=== PATIENT | female | born 1940 | race Asian ===

== ENCOUNTER 2019-04-06 20:59 | Inpatient (IN) | payer OTHER, MEDICAID ==
[~2019-04-06] VITALS: Ht 162.6 cm; Wt 74.8 kg
[2019-04-06 21:05] VITALS: BP_SYST 132
--- NOTE | 2019-04-06 21:58 | NUR ---
Pt BIB daughter with c/o intermittent fever x 10 days and N/V/D with abdominal pain x 6 days. Daughter states that pt has been vomiting twice per day x 6 days. Pt has had poor appetite and ate only "2 nibbles" all day. Daughter states that pt recently returned from [place] and was given zofran, antibiotics, and immodium while there with no improvement in symptomos.
--- NOTE | 2019-04-06 21:58 | NUR ---
Patient to ER bed 6 for evaluation. Side rails up.
--- NOTE | 2019-04-06 21:58 | NUR ---
Patient to ER bed 6 to gown for evaluation. Side rails up. Report given to SHAAWNDA GUTIERREZ.
--- NOTE | 2019-04-06 22:05 | NUR ---
Dr. Valle at bedside.
[2019-04-06] MEDS ORDERED: metroNIDAZOLE 500 mg/NS 100 ML IV ONE (22:15)
--- NOTE | 2019-04-06 22:35 | NUR ---
# 22 gauge angiocath placed to LAC. Use of asceptic technique. Opsite placed over site. Blood return noted. Blood for lab drawn from site. Flushed with 10 cc of normal saline. No evidence of infiltration noted. Patient tolerated well.
[2019-04-06 22:56] LABS: BASOPHILS # (AUTO) 0.1 K/uL (0.0-0.2); BASOPHILS % (AUTO) 0.5 % (0.0-2.0); HEMATOCRIT 35.5 % (36-48); LYMPHOCYTES # (AUTO) 1.5 K/uL (1.0-5.5); LYMPHOCYTES % (AUTO) 8.5 % (20.5-51.5); MEAN CORPUSCULAR HEMOGLOBIN 27 pg (27-31); MEAN CORPUSCULAR HGB CONC 34 % (32-36); MEAN CORPUSCULAR VOLUME 81 fL (79.0-98.0); MONOCYTES # (AUTO) 2.3 K/uL (0.0-1.0); MONOCYTES % (AUTO) 12.9 % (1.7-9.3); NEUTROPHILS # (AUTO) 14.1 K/uL (1.8-7.7); PLATELET COUNT (AUTO) 290 K/uL (130-430); RED BLOOD CELL COUNT(AUTO) 4.39 MIL/uL (4.2-6.2); RED CELL DISTRIBUTION WIDTH 13.4 % (9.0-15.0)
--- NOTE | 2019-04-06 23:00 | NUR ---
Pt verbalizes improvement in pain to 1/10. Daughter at bedside, no needs verbalized at this time. VSS, NAD.
[2019-04-06 23:07] LABS: ANION GAP 9 (5-15); CALCIUM 8.7 mg/dL (8.4-11.0); CHLORIDE 97 mmol/L (98-107); CREATININE 1.35 mg/dL (0.55-1.30); GLUCOSE 112 mg/dL (70-99); SODIUM SERUM 136 mmol/L (136-145); UREA NITROGEN, BLOOD 13 mg/dL (8-21)
[2019-04-06 23:16] LABS: POTASSIUM 2.7 mmol/L (3.5-5.1)
[2019-04-06 23:27] LABS: NEUTROPHILS % (AUTO) 78.1 % (40.0-70.0)
[2019-04-06] MEDS ORDERED: POTASSIUM CHLORIDE 20 MEQ/PKT PACKET PO ONE (23:30)
[2019-04-06 23:32] LABS: TOTAL BILIRUBIN 1.3 mg/dL (0.0-1.0)
[2019-04-06 23:33] LABS: ALANINE AMINOTRANSFERASE 26 U/L (12-78); ALBUMIN 2.9 g/dL (3.4-4.8); ASPARTATE AMINOTRANSFERASE 25 U/L (10-37)
[2019-04-07] MEDS ORDERED: ONDANSETRON 4 MG ODT TAB ONE (00:43)
[2019-04-07] MEDS ORDERED: LEVOFLOXACIN 500 MG/D5W 100 ML IV ONE (00:45)
[2019-04-07] MEDS ORDERED: ONDANSETRON HCL 4 MG/2 ML VIAL IVP ONE (00:45)
[2019-04-07] MEDS ORDERED: NACL 0.9% 1,000 ML IV ONE (00:45)
--- NOTE | 2019-04-07 00:45 | NUR ---
KCL 20 mEq infusing at 50 mL/hr to patent PIV RAC with no s/s infiltration, no burning to site. Denies c/o C/P or SOB. Pt afebrile with temp 98.4 No needs verbalized at this time. VSS, NAD.
--- NOTE | 2019-04-07 01:00 | NUR ---
Pt c/o nausea. Dr. Valle notified.
[2019-04-07] MEDS ORDERED: KCL 20 mEq in 100 mL (PREMIX) 100 ML IV ONE (01:15)
[2019-04-07] MEDS ORDERED: NACL 0.9% 1,200 ML IV ONE (02:30)
[2019-04-07] MEDS ORDERED: ARIP10TA9 PO (02:34)
[2019-04-07] MEDS ORDERED: NOR10 PO (02:35)
[2019-04-07] MEDS ORDERED: ATEN-168 PO (02:35)
[2019-04-07] MEDS ORDERED: HYDR25TA4 PO (02:35)
[2019-04-07] MEDS ORDERED: IRBE150T26 PO (02:35)
--- NOTE | 2019-04-07 02:35 | NUR ---
Medication reconciliation completed with information provided by TEQUILA. Any prior medication reconciliation on file was reviewed and corrected.
--- NOTE | 2019-04-07 03:45 | NUR ---
Temporal Temp recheck 101.3. Dr. Valle notified. Linens removed from pt. VSS. Pt.'s daughter at bedside.
[2019-04-07] MEDS ORDERED: ACETAMINOPHEN 500 MG TABLET ONE (03:52)
[2019-04-07] MEDS ORDERED: ACETAMINOPHEN 500 MG TABLET PO ONE (04:00)
--- NOTE | 2019-04-07 04:38 | NUR ---
X-ray at bedside.
--- NOTE | 2019-04-07 04:39 | NUR ---
Temp recheck 99.7. Denies c/o pain or discomfort. No needs verbalized at this time. Daughter at bedside.
[2019-04-07] MEDS ORDERED: metroNIDAZOLE 500 mg/NS 100 ML IV ONE (05:01)
[2019-04-07] MEDS ORDERED: KCL 20 mEq in D5/0.45NS 1000mL 1,000 ML IV ONE (05:02)
--- NOTE | 2019-04-07 05:07 | NUR ---
ADMIT NOTE Received pt from ER to the floor with a diagnosis of acute gastroenteritis. Admission process initiated. patient oriented to pain management, safety and call light-teach back done.
--- NOTE | 2019-04-07 05:08 | NUR ---
Patient will be admitted to care of Dr. Contreras. Admitted to Tele unit. Will go to room 135. Belongings list completed. Summary report printed. Bedside report given to MATT Ortiz.
[2019-04-07 05:21] VITALS: BP_SYST 117
--- NOTE | 2019-04-07 06:00 | NUR ---
initial notes: pt is awake, alert, oriented x 4, no pain, stable, no distress, no sob. iv lock to right and left ac 20-intact and patent. no skin breakdown. assess pt and chart to admission. explained plan of care, discuss medication and given a medication fact sheets, orient to room and call light, safety. pt verbalized understanding. needs attended. call light in reach. side rails up. low bed position and lock. will continue to monitor.
[2019-04-07] MEDS: KCL 20 mEq in D5/0.45NS 1000mL 1,000 ML IV SCH ×2 (06:14→20:05)
[2019-04-07] MEDS: metroNIDAZOLE 500 mg/NS 100 ML IV SCH ×3 (06:15→21:17)
[2019-04-07 06:30] LABS: BASOPHILS # (AUTO) 0.1 K/uL (0.0-0.2); BASOPHILS % (AUTO) 0.3 % (0.0-2.0); HEMATOCRIT 32.2 % (36-48); HEMOGLOBIN 10.8 g/dL (12.0-16.0); LYMPHOCYTES # (AUTO) 0.8 K/uL (1.0-5.5); MEAN CORPUSCULAR HEMOGLOBIN 27 pg (27-31); MEAN CORPUSCULAR HGB CONC 34 % (32-36); MEAN CORPUSCULAR VOLUME 81 fL (79.0-98.0); MONOCYTES # (AUTO) 2.3 K/uL (0.0-1.0); MONOCYTES % (AUTO) 13.7 % (1.7-9.3); NEUTROPHILS # (AUTO) 13.6 K/uL (1.8-7.7); PLATELET COUNT (AUTO) 258 K/uL (130-430); RED BLOOD CELL COUNT(AUTO) 3.96 MIL/uL (4.2-6.2); RED CELL DISTRIBUTION WIDTH 13.3 % (9.0-15.0); WHITE BLOOD COUNT (AUTO) 16.8 K/uL (4.8-10.8)
[2019-04-07 06:39] LABS: ANION GAP 4 (5-15); CALCIUM 8.1 mg/dL (8.4-11.0); CHLORIDE 103 mmol/L (98-107); CREATININE 1.05 mg/dL (0.55-1.30); GLUCOSE 119 mg/dL (70-99); SODIUM SERUM 133 mmol/L (136-145); UREA NITROGEN, BLOOD 11 mg/dL (8-21)
[2019-04-07 06:44] LABS: ALANINE AMINOTRANSFERASE 19 U/L (12-78); ALBUMIN 2.5 g/dL (3.4-4.8); ASPARTATE AMINOTRANSFERASE 24 U/L (10-37); TOTAL BILIRUBIN 1.4 mg/dL (0.0-1.0)
--- NOTE | 2019-04-07 07:15 | NUR ---
closing: pt is awake, alert. no pain. no distress. stable. no active diarrhea. no vomiting. ivf infusing well. family at bedside. bedside report given to am rn.
[2019-04-07 07:18] LABS: POTASSIUM 2.7 mmol/L (3.5-5.1)
--- NOTE | 2019-04-07 07:20 | NUR ---
Notes: Paged Dr. Contreras due to critical value, K: 2.7.
--- NOTE | 2019-04-07 08:01 | NUR ---
Initial Note: Patient awake, alert and oriented. Assisted patient with bedpan. Denies any pain, nausea, no vomiting at this time. Breakfast tray at bedside, patient is trying to eat breakfast. Safety precaution met, bedside at low position, call light within reach and encourage to use. Family is at bedside.
[2019-04-07 08:04] VITALS: BP_SYST 113
--- NOTE | 2019-04-07 08:25 | NUR ---
Note: Spoke with Dr. Contreras regarding potassium lab result, new order received.
[2019-04-07] MEDS ORDERED: KCL 20 mEq in 100 mL (PREMIX) 200 ML IV ONE (08:30)
[2019-04-07] MEDS ORDERED: POTASSIUM CHLORIDE 20 MEQ TAB.PRT.SR PO ONE (08:30)
--- NOTE | 2019-04-07 10:00 | NUR ---
Notes: Patient resting in bed. Assisted with bedpan, able to self adjust, patient had good urine output. Potassium running of right antecubital, denies any pain or discomfort at IV site. No nausea, vomiting or diarrhea at this time. Will continue to monitor.
[2019-04-07 12:00] VITALS: BP_SYST 129
--- NOTE | 2019-04-07 12:00 | NUR ---
Note: Patient awake and resting in bed. Lunch tray at bedside, patient is drinking juice. Assisted with bed hargrove, patient had loose bowel movement. Denies any pain or discomfort at this time. K-Francisco Javier running on right antecubital, denies any pain or discomfort. All needs met. Call light within reach and encourage patient to use for assistance.
--- NOTE | 2019-04-07 14:00 | NUR ---
Note: Patient awake, and resting in bed. Reposition for comfort. Denies any pain, nausea, diarrhea, or discomfort at this time. Family is at bedside. Call light within reach, and encourage patient to use for assistance.
--- NOTE | 2019-04-07 16:00 | NUR ---
Note: Patient awake and lying down at bedside. Assisted patient with bed hargrove. Family at bedside. Informed family that Dr. Contreras is here and will be making rounds. All needs met at this time. Call light within reach and encourage patient to use for assistance. Will continue to monitor.
[2019-04-07 16:11] VITALS: BP_SYST 156
--- NOTE | 2019-04-07 16:30 | NUR ---
MD Rounds: Dr. Contreras spoke with patient and family at bedside.
[2019-04-07] MEDS ORDERED: ATENOLOL 50 MG TABLET (TENORMIN) PO ONE (17:15)
[2019-04-07] MEDS ORDERED: amLODIPine BESYLATE 10 MG TABLET PO ONE (17:15)
--- NOTE | 2019-04-07 18:44 | NUR ---
Closing Note: Pt wake and alert talking with family at bedside. Denies any pain or discomfort. No active diarrhea, vomiting, or nausea. IVF infusing well, no signs of infiltration or pain. All needs met throughout shift. Safety and fall precautions met. Will continue to monitor until patient care endorsed to oncoming night stocker nurse.
--- NOTE | 2019-04-07 19:20 | NUR ---
Initial Note Received patient awake, alert and oriented with family at the bedside. No SOB noted. Denies any pain at this time. Complain of nausea but no vomiting. Will check orders. IVF infusing. Room air. Skin intact and no peripheral edema noted. Care and monitoring will be provided. Call light within reach. Bed alarm on and at lowest position at all times. Advised we need stool specimen. VS stable. Needs attended. Kept warm and comfortable.
--- NOTE | 2019-04-07 19:40 | NUR ---
Dr. Diane Contreras called back and ordered medications for nausea and pain as needed.
[2019-04-07] MEDS ORDERED: ACETAMINOPHEN 325 MG TABLET PO PRN (19:45)
[2019-04-07] MEDS ORDERED: ONDANSETRON HCL 4 MG/2 ML VIAL IVP PRN (19:45)
[2019-04-07 20:00] VITALS: BP_SYST 125
--- NOTE | 2019-04-07 20:05 | NUR ---
RN Note Refused blood thinner. Given nausea medication per patient's request. Advised that she will get IV antibiotic later and in am. Needs attended. No other complaints.
[2019-04-07] MEDS ORDERED: ENOXAPARIN SODIUM 40 MG/0.4 ML SYRINGE SUBCUT SCH (21:00)
--- NOTE | 2019-04-07 22:00 | NUR ---
RN Note Patient awake and alert with family (son in law) at the bedside. Talked to patient's daughter who's a doctor as well on the phone re total K+ given to her mother today. No other complaints. Needs attended.
--- NOTE | 2019-04-08 01:00 | NUR ---
RN Note Patient sleeping at this time. No SOB or grimacing noted.
[2019-04-08 01:26] VITALS: BP_SYST 126
--- NOTE | 2019-04-08 02:30 | NUR ---
RN Note Patient awake and asked for a bedpan. Given bedpan as requested. No urine noted but patient claims she did. Kept clean, dry and warm. No other complaints.
--- NOTE | 2019-04-08 04:30 | NUR ---
RN Note Asleep, moves occasionally. No distress noted. IVF infusing.
[2019-04-08] MEDS: metroNIDAZOLE 500 mg/NS 100 ML IV SCH ×3 (05:31→21:42)
[2019-04-08 06:07] LABS: ANION GAP 8 (5-15); CALCIUM 7.9 mg/dL (8.4-11.0); CHLORIDE 99 mmol/L (98-107); CREATININE 1.06 mg/dL (0.55-1.30); GLUCOSE 123 mg/dL (70-99); PHOSPHORUS 1.7 mg/dL (2.7-4.5); POTASSIUM 3.5 mmol/L (3.5-5.1); SODIUM SERUM 132 mmol/L (136-145); UREA NITROGEN, BLOOD 8 mg/dL (8-21)
[2019-04-08 06:15] VITALS: BP_SYST 125
[2019-04-08 06:26] LABS: BASOPHILS # (AUTO) 0.1 K/uL (0.0-0.2); BASOPHILS % (AUTO) 0.4 % (0.0-2.0); EOSINOPHILS % (AUTO) 0.1 % (0.0-4.0); HEMATOCRIT 33.1 % (36-48); LYMPHOCYTES # (AUTO) 0.8 K/uL (1.0-5.5); LYMPHOCYTES % (AUTO) 5.9 % (20.5-51.5); MEAN CORPUSCULAR HEMOGLOBIN 27 pg (27-31); MEAN CORPUSCULAR HGB CONC 33 % (32-36); MEAN CORPUSCULAR VOLUME 82 fL (79.0-98.0); MONOCYTES # (AUTO) 1.9 K/uL (0.0-1.0); MONOCYTES % (AUTO) 14.1 % (1.7-9.3); NEUTROPHILS # (AUTO) 10.8 K/uL (1.8-7.7); NEUTROPHILS % (AUTO) 79.5 % (40.0-70.0); PLATELET COUNT (AUTO) 219 K/uL (130-430); RED BLOOD CELL COUNT(AUTO) 4.04 MIL/uL (4.2-6.2); RED CELL DISTRIBUTION WIDTH 13.3 % (9.0-15.0); WHITE BLOOD COUNT (AUTO) 13.6 K/uL (4.8-10.8)
--- NOTE | 2019-04-08 06:42 | NUR ---
End Note Afebrile. VS stable. No complain of pain, SOB or vomiting throughout the night. Medicated for nausea once last night. IVF infusing. AM labs drawn. Had diarrhea, stool specimen obtained and sent to the lab. Offered bed hargrove several times all night. Care and monitoring provided per protocol. Call light within reach. Bed alarm on and at lowest position at all times. Needs attended. Kept warm and comfortable. SR on a monitor. Patient's daughter at the bedside with questions such as IV antibiotics given and how long. Concerned about the diarrhea and wants to hold/stop the IV antibiotics. Wants Ensure supplement and Hepatitis panel for her mother. SCDs instead of Lovenox. Will endorse to AM RN. Vitals taken as requested-stable.
[2019-04-08 07:45] VITALS: BP_SYST 137
--- NOTE | 2019-04-08 07:51 | NUR ---
AM rounds: Patient is oriented x4. Denies pain at this time, patient states she has occasional cramping but none this time. Call light within reach. IV fluids of D5 1/2 NS +20KLC at 75 cc/hr infusing ont the right AC gauge 20, IV is patent is intact.
[2019-04-08] MEDS: KCL 20 mEq in D5/0.45NS 1000mL 1,000 ML IV SCH (08:50)
[2019-04-08] MEDS: ATENOLOL 50 MG TABLET (TENORMIN) PO SCH (08:51)
[2019-04-08] MEDS ORDERED: ARIPiprazole 5 MG TAB PO SCH (09:00)
[2019-04-08] MEDS ORDERED: amLODIPine BESYLATE 10 MG TABLET PO SCH (09:00)
--- NOTE | 2019-04-08 09:49 | NUR ---
Nutrition Update Geraldo Scale 18 noted. Pt admitted for acute gastroenteritis. Diet: full liquid BMI: 28.3 kg/m2 RD to follow per nutrition care standards.
--- NOTE | 2019-04-08 11:04 | NUR ---
CONSULTATION PAGED/CALLED Reason for Consultation: GASTROENTERITIS Person Who was Notified: SPOKE WITH ELADIO FROM DR. ROACH OFFICE Consulting Physician: Form Tamper Specialty: INFECTIOUS DISEASE Ordering Physician:
--- NOTE | 2019-04-08 11:52 | NUR ---
SCD: Bilateral SCD initiated . Indications were explained to the patient and son.
[2019-04-08 12:34] VITALS: BP_SYST 129
--- NOTE | 2019-04-08 15:11 | NUR ---
Bathroom: Assisted patient to the bathroom. Noted with limping gait which family said is her baseline due to hip/joints problems. Had small soft BM.
[2019-04-08 16:24] VITALS: BP_SYST 136
[2019-04-08] MEDS: ARIPiprazole 5 MG TAB PO SCH (17:02)
--- NOTE | 2019-04-08 18:00 | NUR ---
ID consult: Seen by Dr. Frankel, new orders noted. Patient's daughter at bedside.
--- NOTE | 2019-04-08 18:22 | NUR ---
End of shift: Needs attended. No change in assessment.
[2019-04-08] MEDS: cefTRIAXone 1 GM in D5W 50 ML IV SCH (19:31)
--- NOTE | 2019-04-08 20:00 | NUR ---
Initial note: Received report from severiano RN. Patient is laying in bed awake. Alert and oriented x4, no distress noted. Tolerates room air. IV sites to right and left AC are patent and benign. Right AC is receiving IV fluids as ordered. Call light with patient. Bed locked in lowest position, side rails raised, bed alarm on. Will continue with plan of care.
[2019-04-08 20:50] VITALS: BP_SYST 140
[2019-04-08] MEDS: amLODIPine BESYLATE 10 MG TABLET PO SCH (21:42)
[2019-04-08] MEDS: NAPH,MB-DB/K PH,MBDB 250 MG TAB PO SCH (21:42)
--- NOTE | 2019-04-08 21:43 | NUR ---
Med pass: Scheduled medications administered as ordered. Patient tolerated well, no adverse effects noted. Patient's daughter present at bedside, updated her with plan of care. Call light with patient. Will continue to monitor.
--- NOTE | 2019-04-09 00:08 | NUR ---
Rounds: Patient is resting in bed comfortably. No acute distress. Even and effortless breathing on room air. IV fluids infusing as ordered. Calll light is with patient. Will continue to monitor.
[2019-04-09 01:02] VITALS: BP_SYST 131
[2019-04-09] MEDS: KCL 20 mEq in D5/0.45NS 1000mL 1,000 ML IV SCH ×3 (01:09→17:28)
--- NOTE | 2019-04-09 02:05 | NUR ---
Stool sample collected: Patient had 1 BM with loose, brown stool. Collected stool sample for ordered cultures. Sample sent to lab. Will continue to monitor.
--- NOTE | 2019-04-09 04:32 | NUR ---
Rounds: Patient is asleep, no distress. Even and unlabored breathing on room air. IV fluids infusing well to right AC. Call light with patient. Will continue to monitro.
[2019-04-09] MEDS: metroNIDAZOLE 500 mg/NS 100 ML IV SCH ×3 (05:25→21:56)
--- NOTE | 2019-04-09 06:10 | NUR ---
Closing note: Patient is asleep, laying comfortably in bed. No distress noted. Tolerating room air, even and unlabored breathing. IV fluids infusing well to right AC IV site. Left AC IV site remains patent and benign. All needs met. Safety and fall precautions observed. Hourly rounding performed throughout shift. Will endorse care to dayshift RN.
[2019-04-09 08:00] VITALS: BP_SYST 135
--- NOTE | 2019-04-09 08:03 | NUR ---
Initial Note: Pt resting in bed, awake, alert. Assisted to restroom, with minimal assistance. Patient had steady gait. Denies any dizziness, or pain at this time. IVF infusing well. Family at bedside. Safety precautions met, bed at lowest position, call light within reach and encouraged to use for assistance.
[2019-04-09 08:22] LABS: HEPATITIS A AB, IgM Negative (Negative); HEPATITIS B CORE AB, IgM Negative (Negative); HEPATITIS B SURFACE AG Negative (Negative)
[2019-04-09] MEDS: NAPH,MB-DB/K PH,MBDB 250 MG TAB PO SCH ×4 (08:40→21:56)
[2019-04-09] MEDS: ATENOLOL 50 MG TABLET (TENORMIN) PO SCH (08:40)
--- NOTE | 2019-04-09 10:00 | NUR ---
Notes: Pt lying down and sleeping in bed. No acute distress noted. Breathing is non-labored and even. Will continue to monitor.
[2019-04-09 11:00] VITALS: BP_SYST 137
--- NOTE | 2019-04-09 11:00 | NUR ---
DC Planning: late entry: received call from pt's dtr Zackery # [phone], she requested pt going to [facility] for [facility]hab until the pt is strong enoug for home discharge. She requested pt going to [facility]. Dr. Contreras made aware.
--- NOTE | 2019-04-09 12:00 | NUR ---
Notes: Pt awake, sitting up in bed, eating lunch. Denies any n/v/d, chest pain, or discomfort at this time. Family is at bedside. Call light is within reach and encourage patient to use for assistance. Will continue to monitor.
--- NOTE | 2019-04-09 12:17 | NUR ---
Dietitian Recommendations Continue full liquid diet Encourage PO intakes LT, RD Please refer to Nutrition Assessment for details. Addendum: 04/09/19 at [address] Amended: Links added.
--- NOTE | 2019-04-09 13:21 | NUR ---
Notes: Spoke with WILLIAM Caldwell, patients daughter would like to speak with CM to see if there is food services for her mother. Pt lives with daughter at home, daughter works during the day and there is no one to care for pt. Gave CM the phone number of the daughter Bieg, she will speak with her.
--- NOTE | 2019-04-09 14:00 | NUR ---
Notes: Pt awake and lying down in bed. Denies any n/v/d, pain or discomfort. All needs met at this time. Safety precautions in place, call light within reach and encourage patient to use for assistance.
[2019-04-09 17:20] VITALS: BP_SYST 133
[2019-04-09] MEDS: cefTRIAXone 1 GM in D5W 50 ML IV SCH (17:29)
[2019-04-09] MEDS: ARIPiprazole 5 MG TAB PO SCH (17:47)
--- NOTE | 2019-04-09 18:17 | NUR ---
Closing Note: Pt awake, alert, lying in bed. Family at bedside. Pt denies any n/v/d, pain or discomfort. No acute distress. IV fluids infusing well to right AC IV site. All needs met at this time. Safety precautions observed, call light within reach and encourage pt to use for assistance. Will endorse pt care to assistant casino shift manager nurse.
[2019-04-09 20:00] VITALS: BP_SYST 139
--- NOTE | 2019-04-09 20:00 | NUR ---
INITIAL NOTES: PT IS ALERT AND ORIENTED ;VITALS ARE STABLE ; NOT IN ANY ACUTE DISTRESS ;FAMILY AT BEDSIDE ; PT HAD ONE LOOSE BM , PT CLEANED , SPONGE BATH PROVIDED BY MARBLE RUBBER ;. PT IS COMFORTABLE ; WILL CONTINUE TO MONITOR AND WILL ENDORSE TO BETY RN .
--- NOTE | 2019-04-09 20:40 | NUR ---
RN NOTES : REPORT GIVEN TO BETY RN , PT IS COMFORTABLE ; NOT IN ANY ACUTE DISTRESS.
--- NOTE | 2019-04-09 21:50 | NUR ---
ASSUMPTION OF CARE RECEIVED HANDOFF REPORT FROM ORLIN. PATIENT IS RESTING COMFORTABLY IN BED, AAOX4. FAMILY IS AT THE BEDSIDE. NO SOB, NO ACUTE DISTRESS, NO COMPLAINTS OF ANY PAIN AT THIS TIME. CURRENTLY RECEIVING IVF PER THE MD ORDER, SEE EMAR FOR DETAILS. BED IS LOCKED, IN THE LOWEST POSITION, 2X SIDE RAILS UP, BED ALARM IS ON. CALL LIGHT IS WITHIN REACH. ENCOURAGED PATIENT TO CALL FOR ASSISTANCE. WILL CONTINUE WITH PLAN OF CARE.
[2019-04-09] MEDS: amLODIPine BESYLATE 10 MG TABLET PO SCH (22:03)
--- NOTE | 2019-04-09 23:45 | NUR ---
ASSISTED PATIENT TO USE THE BEDPAN. PATIENT VOIDED YELLOW CLEAR URINE. PROVIDED PERINEAL CARE NEEDED. PATIENT IS NOW CLEAN AND DRY, RESTING COMFORTABLY IN BED. BED IS LOCKED, IN THE LOWEST POSITION, 2X SIDE RAILS UP, BED ALARM IS ON. CALL LIGHT WITHIN REACH. ENCOURAGED PATIENT TO CALL FOR ASSISTANCE.
[2019-04-10 00:42] VITALS: BP_SYST 133
--- NOTE | 2019-04-10 01:19 | NUR ---
PATIENT ASSISTED TO AMBULATE TO THE TOILET TO VOID. HAD CLEAR YELLOW URINE, SOME PIECES OF DIARRHEA NOTED. ASSISTED PATIENT WITH PERINEAL CARE AND HAND HYGIENE. AMBULATED BACK TO BED WITH ASSISTANCE. NOW RESTING COMFORTABLY IN BED. SCDs REAPPLIED TO BOTH LEGS. CALL LIGHT WITHIN REACH. ENCOURAGED PATIENT TO CALL FOR ASSISTANCE.
--- NOTE | 2019-04-10 03:52 | NUR ---
PATIENT CALLED FOR ASSISTANCE. ASSISTED PATIENT TO AMBULATE TO THE RESTROOM. PATIENT VOIDED CLEAR YELLOW URINE. PROVIDED HAND HYGIENE FOR THE PATIENT. PATIENT RETURNED BACK TO BED. NOW RESTING COMFORTABLY IN BED. BED IS LOCKED, IN THE LOWEST POSITION, 2X SIDE RAILS UP, BED ALARM IS ON. CALL LIGHT WITHIN REACH. IV SITE INTACT, CURRENTLY INFUSING IVF PER MD ORDER, SEE EMAR. ENCOURAGED PATIENT TO CALL FOR ASSISTANCE.
[2019-04-10] MEDS: metroNIDAZOLE 500 mg/NS 100 ML IV SCH ×3 (05:38→22:26)
--- NOTE | 2019-04-10 06:13 | NUR ---
CLOSING NOTES PATIENT IS RESTING COMFORTABLY IN BED, EYES CLOSED, EASILY AROUSABLE TO TOUCH. NO SOB, NO ACUTE DISTRESS, NO COMPLAINTS OF PAIN AT THIS TIME. IV SITE INTACT, DRESSING CLEAN AND DRY, CURRENTLY INFUSING IVF PER MD ORDER, SEE EMAR FOR DETAILS. BILATERAL SCDS ARE CURRENTLY APPLIED TO BOTH LEGS. BED IS LOCKED, IN THE LOWEST POSITION, 2X SIDERAILS UP, BED ALARM IS ON. CALL LIGHT IS WITHIN REACH. FALL AND SAFETY PRECAUTIONS MAINTAINED. ALL NEEDS HAVE BEEN MET DURING THIS SHIFT. ENDORSEMENT OF CARE WILL BE GIVEN TO ONCOMING DAYSHIFT NURSE.
[2019-04-10] MEDS: KCL 20 mEq in D5/0.45NS 1000mL 1,000 ML IV SCH ×2 (06:28→18:40)
--- NOTE | 2019-04-10 07:57 | NUR ---
initial notes rec patient awake, alert and assisted to the br with minimal assists. ivf infusing on the r ac. no infiltration noted. denies pain or sob. resp easy and unlabored. bed to the lowest position and side rails up and locked. call light within reached and knows when to garima for assists.
[2019-04-10 08:00] VITALS: BP_SYST 144
[2019-04-10] MEDS: NAPH,MB-DB/K PH,MBDB 250 MG TAB PO SCH ×5 (09:43→20:46)
[2019-04-10] MEDS: ATENOLOL 50 MG TABLET (TENORMIN) PO SCH (09:44)
--- NOTE | 2019-04-10 10:00 | NUR ---
rounds due meds given as ordered and salbador well. resting comfortably. call light within reached.
[2019-04-10 12:00] VITALS: BP_SYST 124
--- NOTE | 2019-04-10 12:00 | NUR ---
rounds assisted to the br and salbador well. denies any pain at this time. no sob noted. call light within reached.
--- NOTE | 2019-04-10 14:00 | NUR ---
rounds asleep when rounds made. no sob noted. call light within reached.
[2019-04-10 16:25] VITALS: BP_SYST 130
[2019-04-10] MEDS: ARIPiprazole 5 MG TAB PO SCH (18:00)
--- NOTE | 2019-04-10 18:00 | NUR ---
rounds eating lunch.no sob noted. daughter at bedside.
[2019-04-10] MEDS: cefTRIAXone 1 GM in D5W 50 ML IV SCH (18:36)
--- NOTE | 2019-04-10 18:57 | NUR ---
closing notes resting comfortably. no sob noted. denies pain. bed to the lowest position and side rails up and locked. stable and needs attended.
--- NOTE | 2019-04-10 19:35 | NUR ---
ROUNDS PATIENT RESTING COMFORTABLY IN BED, NOT IN DISTRESS, VITALS STABLE . DENIES ANY PAIN AND DISCOMFORT AT THIS TIME. ASSESSMENT DONE AND DOCUMENTED. SEE FLOWSHEET. NEEDS ATTENDED TO. SAFETY AND FALL PRECAUTION MEASURES IN PLACED. CALL LIGHT PLACED WITHIN REACH.
[2019-04-10] MEDS: amLODIPine BESYLATE 10 MG TABLET PO SCH (20:46)
--- NOTE | 2019-04-10 21:13 | NUR ---
MEDICATION DUE MEDICATIONS GIVEN SCHEDULED, TOLERATED WELL. WILL CONTINUE TO MONITOR.
[2019-04-10 23:41] VITALS: BP_SYST 154
--- NOTE | 2019-04-11 00:16 | NUR ---
PATIENT RESTING: Patient resting quietly. No acute distress noted. Vital signs within normal range.
--- NOTE | 2019-04-11 02:15 | NUR ---
ROUNDS PATIENT ASLEEP, RESPIRATIONS EVEN AND UNLABORED, NO SIGNS OF PAIN AND DISCOMFORT NOTED. WILL CONTINUE TO MONITOR.
--- NOTE | 2019-04-11 04:12 | NUR ---
PATIENT RESTING: Patient resting quietly. No acute distress noted. Vital signs within normal range.
[2019-04-11] MEDS: metroNIDAZOLE 500 mg/NS 100 ML IV SCH ×3 (05:49→22:00)
--- NOTE | 2019-04-11 06:48 | NUR ---
CLOSING NOTES PATIENT AWAKE, NO COMPLAINTS AT THIS TIME, VITALS STABLE. ALL NEEDS ATTENDED TO. SAFETY AND FALL PRECAUTION MEASURES IN PLACED. BED IN LOW AND LOCKED POSITION. CALL LIGHT PLACED WITHIN REACH.
[2019-04-11 08:00] VITALS: BP_SYST 149; BP_SYST 151
--- NOTE | 2019-04-11 08:00 | NUR ---
initial notes rec patient awake alert with hob elevated. denies pain. ivf infusing well on the l hand. no infiltration noted. resp easy and unlabored. no osb noted. bed to the lowest position and side rails up and locked. call light withn reached and knows when to call for assistance.
[2019-04-11] MEDS: NAPH,MB-DB/K PH,MBDB 250 MG TAB PO SCH ×4 (09:22→20:54)
[2019-04-11] MEDS: ATENOLOL 50 MG TABLET (TENORMIN) PO SCH (09:23)
--- NOTE | 2019-04-11 10:00 | NUR ---
rounds due meds were given as ordered. assisted to the br with min assists and salbador well. call light within reached.
[2019-04-11 11:40] VITALS: BP_SYST 127
[2019-04-11] MEDS: KCL 20 mEq in D5/0.45NS 1000mL 1,000 ML IV SCH (12:41)
--- NOTE | 2019-04-11 12:44 | NUR ---
rounds due meds were given. call light within reached. no sob noted.
--- NOTE | 2019-04-11 14:00 | NUR ---
rounds assisted to the br with min assists and salbador well. no sob noted.
[2019-04-11 15:38] VITALS: BP_SYST 136
--- NOTE | 2019-04-11 16:00 | NUR ---
rounds asleep when rounds made. call light withn reached.
[2019-04-11] MEDS: ARIPiprazole 5 MG TAB PO SCH (18:00)
--- NOTE | 2019-04-11 18:30 | NUR ---
closing notes seen by dr sharma and talk to patient's daughter at bedside. resting comfortable. call light withn reached. no sob noted.
[2019-04-11] MEDS: cefTRIAXone 1 GM in D5W 50 ML IV SCH (18:34)
[2019-04-11 20:00] VITALS: BP_SYST 147
--- NOTE | 2019-04-11 20:00 | NUR ---
Opening notes Pt AAOx4, VSS, afebrile. Pt denies any N/V, or pain at this time. IVF infusing at ordered rate L hand 22G no s/s infiltration. Call light within easy reach. Daughter at bedside. Marv SCDs on. Bed low, locked, siderails x2 elevated. To monitor.
--- NOTE | 2019-04-11 20:50 | NUR ---
Rounds Pt assisted to the bathroom, denies any dizziness. Pt voided and had a small soft yellow BM.
[2019-04-11] MEDS: amLODIPine BESYLATE 10 MG TABLET PO SCH (20:53)
--- NOTE | 2019-04-11 22:40 | NUR ---
Rounds Pt asleep, easily arousable. No s/s distress noted. Call light within reach. Bed low, locked siderails up x2. To monitor.
[2019-04-11 23:11] VITALS: BP_SYST 152
--- NOTE | 2019-04-12 02:30 | NUR ---
Rounds Pt ambulated to the bathroom with SLIME PLANT OPERATOR HELPER standby assist. No s/s distress noted. Call light within reach. To monitor.
[2019-04-12] MEDS: KCL 20 mEq in D5/0.45NS 1000mL 1,000 ML IV SCH ×2 (03:43→16:13)
--- NOTE | 2019-04-12 04:48 | NUR ---
Rounds Pt asleep, no s/s distress or discomfort noted. Call light within reach. Bed low, locked, side rails x 2 up. To monitor.
[2019-04-12] MEDS: metroNIDAZOLE 500 mg/NS 100 ML IV SCH ×2 (06:00→14:00)
--- NOTE | 2019-04-12 06:35 | NUR ---
Closing notes Pt asleep, easily arousable. No c/o N/V, pain or discomfort. IV fluids infusing at ordered rate L. hand 22G no s/s infiltration. Call light within reach. Bed maintained low, locked, side rails up x2. Marv SCds on. To endorse to AM nurse.
[2019-04-12 06:40] LABS: BASOPHILS # (AUTO) 0.1 K/uL (0.0-0.2); BASOPHILS % (AUTO) 0.9 % (0.0-2.0); EOSINOPHILS # (AUTO) 0.3 K/uL (0.0-0.4); EOSINOPHILS % (AUTO) 3.2 % (0.0-4.0); HEMATOCRIT 37.5 % (36-48); HEMOGLOBIN 12.8 g/dL (12.0-16.0); LYMPHOCYTES % (AUTO) 18.7 % (20.5-51.5); MEAN CORPUSCULAR HEMOGLOBIN 28 pg (27-31); MEAN CORPUSCULAR HGB CONC 34 % (32-36); MEAN CORPUSCULAR VOLUME 81 fL (79.0-98.0); MONOCYTES # (AUTO) 1.4 K/uL (0.0-1.0); MONOCYTES % (AUTO) 13.5 % (1.7-9.3); NEUTROPHILS # (AUTO) 6.8 K/uL (1.8-7.7); NEUTROPHILS % (AUTO) 63.7 % (40.0-70.0); PLATELET COUNT (AUTO) 342 K/uL (130-430); RED BLOOD CELL COUNT(AUTO) 4.66 MIL/uL (4.2-6.2); RED CELL DISTRIBUTION WIDTH 13.6 % (9.0-15.0); WHITE BLOOD COUNT (AUTO) 10.7 K/uL (4.8-10.8)
[2019-04-12 07:12] LABS: ANION GAP 11 (5-15); CALCIUM 8.3 mg/dL (8.4-11.0); CHLORIDE 99 mmol/L (98-107); CREATININE 0.79 mg/dL (0.55-1.30); GLUCOSE 116 mg/dL (70-99); PHOSPHORUS 3.3 mg/dL (2.7-4.5); POTASSIUM 3.1 mmol/L (3.5-5.1); SODIUM SERUM 137 mmol/L (136-145); UREA NITROGEN, BLOOD 6 mg/dL (8-21)
[2019-04-12 08:00] VITALS: BP_SYST 154
--- NOTE | 2019-04-12 08:00 | NUR ---
initial notes rec patient awake laert with ivf infusing well on the l hand. no infiltration noted. resp easy and unlabored. no sob noted. bed to the lowest position and side rails up and locked. call light withn reached and knows when to call for assistance. denies pain at this time. will continue to monitor patient.
[2019-04-12] MEDS: NAPH,MB-DB/K PH,MBDB 250 MG TAB PO SCH ×3 (08:30→18:00)
[2019-04-12] MEDS: ATENOLOL 50 MG TABLET (TENORMIN) PO SCH (09:59)
--- NOTE | 2019-04-12 10:30 | NUR ---
rounds due meds given as ordered and aslbador well. no osb noted. call light within reached.
[2019-04-12] MEDS ORDERED: POTASSIUM CHLORIDE 20 MEQ TAB.PRT.SR PO ONE (11:45)
--- NOTE | 2019-04-12 12:00 | NUR ---
rounds assisted to the br and salbador well. no sob noted.
[2019-04-12 12:17] VITALS: BP_SYST 129
--- NOTE | 2019-04-12 14:00 | NUR ---
rounds asleep when rounds made. call light within reached.
--- NOTE | 2019-04-12 16:15 | NUR ---
rounds due meds were given. assisted to the br and salbador well. no sob noted.
[2019-04-12 16:31] VITALS: BP_SYST 124
--- NOTE | 2019-04-12 17:29 | NUR ---
Nutrition F/U RD reviewed pt's current EMR record including diet Hx, physician notes, nursing notes, pertinent labs/meds/procedures, care trends, and care activity. Current Diet Order: regular x0 days Subjective Info: Per physician notes, pt's diarrhea has been improving. BM x4 noted today. Pt was advanced to regular diet earlier today. Wt stable since last RD visit (165 lb). Current % PO 53% avg x9 meals Estimated Energy Expenditure (kcals/day) 1500-1800kcal/day (25-30kcal/kg based on ABW due to BMI>24.9) Estimated Protein Required (g/day) 60-72g/day (1-1.2g/kg based on ABW for geriatric maintenance) Estimated Fluid Required (l/day) 2.3-2.6L/day (30-35ml/kg based on CBW for dehydration) Problem/Etiology/Signs/Symptoms Complicated GI function R/T compromised GI AEB diarrhea and electrolyte imbalance. *ongoing Suboptimal PO intakes R/T lack of appetite, nausea AEB Pt report and poor PO intake records. *ongoing Expected Outcomes/Goals Monitor advancement of diet, PO intakes, and appetite with goal of patient meeting at least >75% of PO intake, labs trending WNL, and skin integrity, weight maintenance. Dietitian Recommendations * Recommend continuing regular diet * Encourage PO intakes Follow Up Moderate Risk: F/U in 3-5 days
--- NOTE | 2019-04-12 17:32 | NUR ---
Dietitian Recommendations * Recommend continuing regular diet * Encourage PO intakes LP, RD Please refer to Nutrition F/U for details.
[2019-04-12] MEDS: ARIPiprazole 5 MG TAB PO SCH (18:00)
[2019-04-12] MEDS: cefTRIAXone 1 GM in D5W 50 ML IV SCH (18:00)
--- NOTE | 2019-04-12 19:00 | NUR ---
closing notes endorsed to tiffany vanessa re patient daughter will be here to grain picker patient. refused her abx at 1800 and po pills. no sob noted. bed to the lowest position and side rails up and locked.
--- NOTE | 2019-04-12 19:05 | NUR ---
OPENING NOTE Bedside report received from dayshift nurse. Patient received lying in bed, awake, AOx4, no s/s of acute distress noted. Breathing even and unlabored. IVF infusing well, IV site patent, no signs of infiltration or infection noted. Patient is aware of discharge order and stated that her daughter is on her way to pick her up. Call light with patient. Bed alarm on. Will continue to monitor.
[2019-04-12 20:00] VITALS: BP_SYST 137
[2019-04-12 20:07] VITALS: BP_SYST 137
[2019-04-12] MEDS ORDERED: METR500T PO (20:18)
[2019-04-12] MEDS ORDERED: LEVO750T45 PO ×2 (20:19→20:37)
--- NOTE | 2019-04-12 21:17 | NUR ---
Elisa Gibson, s/w Christina
--- NOTE | 2019-04-12 21:38 | NUR ---
DISCHARGED/DR. MCKEON SPOKE TO DAUGHTER Dr. Mckeon spoke with patient's daughter, all concerns addressed at this time. IV site removed, catheter fully intact, no active bleeding noted. ID band removed and disposed off properly. No s/s of acute distress noted, patient denies any pain or discomfort. Breathing even and unlabored. Patient is escorted out via wheelchair by SUPERVISOR CONTACT LENS. All needs met.
--- NOTE | 2019-04-23 14:43 | NUR ---
DISCHARGE FOLLOW UP PHONE CALL / SAVANNA BADILLO PHONED PATIENT, . SPOKE TO PATIENT'S SUN (KIN) CATARINO LUBIN. HE MENTIONED THAT PATIENT IS FEELING BETTER. HE HAS NO QUESTIONS ABOUT D/C INSTRUCTIONS. PATIENT IS TAKING MEDICATIONS INSTRUCTED. SHE HAS HER APPOINTMENT WITH HER PCP NEXT WEEK. NO QUESTIONS OR CONCERNS. THEY WILL GIVE THE HOSPITAL A CALL IF ANY QUESTIONS IN THE FUTURE.
== END 2019-04-12 21:38 | disposition home or self-care (01) | DRG 391 ==
LOC: SED 20:59 → STU 04-07 03:19 → SMU 04-09 19:31
PROVIDERS: ADMIT Family Medicine; ATTEND Family Medicine
DX: K52.9 Noninfective gastroenteritis and colitis, unspecified (principal); E43 Unspecified severe protein-calorie malnutrition; E87.2 Acidosis; R65.10 Systemic inflammatory response syndrome (SIRS) of non-infectious origin without acute organ dysfunction; D64.9 Anemia, unspecified; I10 Essential (primary) hypertension; E86.0 Dehydration; Z90.710 Acquired absence of both cervix and uterus; E87.6 Hypokalemia; F32.9 Major depressive disorder, single episode, unspecified; E87.8 Other disorders of electrolyte and fluid balance, not elsewhere classified; Z68.28 Body mass index [BMI] 28.0-28.9, adult
CPT/HCPCS: 36415; 71045; 80048; 80053; 82272; 83605; 83735-TC; 84100-TC; 85025; 86705; 86709; 87040-TC; 87045-TC; 87046; 87177; 87230-TC; 87340; 89055; 96361; 96365; 96367; 96375; 99285; G0378; J0696; J1650; J1956; J2405; J3480; J3490; J7030; J7060; Q0162